=== PATIENT | female | born 2000 | race Caucasian/White ===

== ENCOUNTER 2020-08-23 15:21 | Emergency (ER) | payer OTHER ==
[~2020-08-23] VITALS: Ht 160 cm; Wt 52.6 kg
[2020-08-23 15:45] VITALS: BP_SYST 138
[2020-08-23] MEDS: IBUPROFEN 600 MG TABLET PO ONE (16:27)
[2020-08-23] MEDS ORDERED: NAPR-1172 PO (16:57)
[2020-08-23 17:06] VITALS: BP_SYST 138
== END 2020-08-23 17:06 | disposition home or self-care (01) ==
LOC: SED 15:21
DX: S13.4XXA Sprain of ligaments of cervical spine, initial encounter (principal); R51.9 Headache, unspecified; V49.49XA Driver injured in collision with other motor vehicles in traffic accident, initial encounter; Y93.89 Activity, other specified; Y92.89 Other specified places as the place of occurrence of the external cause; Y99.8 Other external cause status
CPT/HCPCS: 70450-TC; 72040-TC; 76376; 99284